=== PATIENT | female | born 1975 | race Two or more races ===

== ENCOUNTER 2024-06-04 09:41 | Day surgery (SDC) | payer OTHER ==
[2024-05-28 12:03] VITALS: BP 106/67
[2024-05-28 13:49] LABS: RH POSITIVE
[~2024-06-04] VITALS: Ht 154.9 cm; Wt 89.8 kg
[~2024-06-04 09:41] MED LIST: GLUMETZA500 MG PO
[2024-06-04] MEDS ORDERED: BUPIVACAINE HCL/Mpf 0.5% 10ML VIAL ONE (13:26)
[2024-06-04] MEDS ORDERED: CEFTRIAXONE SODIUM 2,000 MG VIAL ONE (13:27)
[2024-06-04] MEDS ORDERED: LIDOCAINE HCL 1%/EPINEPHRINE 20ML VIAL IJ ONE (13:27)
[2024-06-04] MEDS ORDERED: METRONIDAZOLE/SODIUM CHLORIDE 500 MG/100 ML PIGGYBACK IV ONE (13:27)
[2024-06-04] MEDS ORDERED: SUGAMMADEX SODIUM 200 MG/2 ML VIAL IV ONE (15:31)
[2024-06-04] MEDS ORDERED: MORPHINE SULFATE 4 MG/ML VIAL IV ONE ×2 (16:55→18:05)
[2024-06-04] MEDS ORDERED: ONDANSETRON HCL 2 MG/ML VIAL ONE (17:04)
== END 2024-06-04 19:05 | disposition home or self-care (01) ==
LOC: O/R 09:41 → SURH 09:41 → CIR.AMB 09:41 → O/R 19:05
PROVIDERS: ATTEND Colon & Rectal Surgery
DX: K57.32 Diverticulitis of large intestine without perforation or abscess without bleeding (principal); N83.202 Unspecified ovarian cyst, left side; R10.32 Left lower quadrant pain; Z91.018 Allergy to other foods; Z91.013 Allergy to seafood; E11.9 Type 2 diabetes mellitus without complications

== ENCOUNTER 2024-10-10 07:29 | Inpatient (IN) | payer OTHER ==
[~2024-10-10] VITALS: Ht 154.9 cm; Wt 90.7 kg
[2024-10-10 08:10] VITALS: BP 133/79
[2024-10-10 08:21] LABS: URINE APPEARANCE Clear; URINE BILIRRUBIN Negative (NEGATIVE); URINE BLOOD Trace; URINE COLOR Dark Yellow; URINE GLUCOSE Negative (NEGATIVE); URINE KETONE Trace (NEGATIVE); URINE LEUKOCYTE Negative; URINE NITRATE Negative; URINE PROTEIN Trace (NEGATIVE); URINE UROBILINOGEN 0.2 E.U./dl
[2024-10-10 08:24] LABS: URINE BACTERIA 1033.1 uL (0.0-1933); URINE EPITHELIAL CELLS 37.8 uL (0.0-38.8); URINE RBC 39.0 uL (0.0-20.8); URINE WBC 20.9 uL (0.0-23.2)
[2024-10-10 08:29] LABS: URINE CAST 0.29 uL (0.0-1.40)
[2024-10-10 08:35] LABS: BASO % 0.6 % (0.1-1.2); EOS # 0.26 (0.04-0.54); EOS % 2.8 % (0.7-7.0); LYMPH # 3.00 (1.18-3.74); LYMPH % 32.3 % (19.3-53.1); MEAN PLATELET VOLUME 9.70 fl (9.4-12.4); MONO # 0.60 (0.24-0.82); MONO % 6.5 % (4.7-12.5); NEUT # 5.34 (1.56-6.13); NEUT % 57.5 % (34.0-71.1); RED CELL DISTRIBUTION WIDTH 13.6 % (11.6-14.4)
[2024-10-10 08:42] LABS: COVID-19 AG NEGATIVE (NEGATIVE)
[2024-10-10 08:44] LABS: INR 1.04
[2024-10-10 08:49] LABS: ALT/SGPT 28.0 U/L (12-78); AST/SGOT 18.0 U/L (15-37); BILIRUBIN TOTAL 0.61 mg/dL (0.3-1.2); BUN CREA RATIO 11.0 (7.0-25.0); CREATININE SERUM 0.71 mg/dL (0.55-1.02); GFR 87.49; GLOBULINA 4.3 G/DL (2.4-3.5); GLUCOSE FASTING 106.0 mg/dL (65-100); OSMOLALITY SERUM 287.0 MOSM/KG (275-295)
[2024-10-10 09:10] LABS: RH POSITIVE
[2024-10-15] MEDS ORDERED: METRONIDAZOLE/SODIUM CHLORIDE 500 MG/100 ML PIGGYBACK IV ONE (08:45)
[2024-10-15] MEDS ORDERED: CEFTRIAXONE SODIUM 2,000 MG VIAL IV ONE (08:45)
[2024-10-15] MEDS ORDERED: LIDOCAINE HCL 1%/EPINEPHRINE 20ML VIAL IJ ONE (08:45)
[2024-10-15] MEDS ORDERED: BUPIVACAINE HCL 30 ML VIAL IJ ONE (08:45)
[2024-10-15] MEDS ORDERED: CHLORHEXIDINE GLUCONATE 120 ML BOTTLE TOP ONE (08:45)
[2024-10-15] MEDS ORDERED: hydrALAZINE HCL 20 MG VIAL IV ONE (10:30)
[2024-10-15] MEDS ORDERED: THROMBIN,HU/FIBRINOGEN/CALCIUM 10 ML SYRINGE TOP ONE (13:15)
[2024-10-15] MEDS ORDERED: ACETAMINOPHEN 500 MG GEL..CAP PO SCH (13:43)
[2024-10-15] MEDS ORDERED: DEXTROSE 50 % IN WATER 0.5 G/ML VIAL IV PRN (13:45)
[2024-10-15] MEDS ORDERED: ONDANSETRON HCL 2 MG/ML VIAL IV PRN (13:45)
[2024-10-15] MEDS ORDERED: MORPHINE SULFATE 4 MG/ML VIAL IV PRN (13:45)
[2024-10-15] MEDS ORDERED: OxyCODONE HCL 5 MG TABLET (ROXICODONE) PO PRN (13:45)
[2024-10-15] MEDS ORDERED: RINGERS SOLUTION,LACTATED 1,000 ML IV SCH (13:45)
[2024-10-15] MEDS ORDERED: MORPHINE SULFATE 4 MG,MORPHINE SULFATE 2 MG IV PRN (14:00)
[2024-10-15] MEDS ORDERED: SUGAMMADEX SODIUM 200 MG/2 ML VIAL IV ONE (14:15)
[2024-10-15 16:08] LABS: BASO % 0.2 % (0.1-1.2); EOS # 0.00 (0.04-0.54); EOS % 0.0 % (0.7-7.0); LYMPH # 0.81 (1.18-3.74); LYMPH % 5.2 % (19.3-53.1); MEAN PLATELET VOLUME 9.60 fl (9.4-12.4); MONO # 0.69 (0.24-0.82); MONO % 4.5 % (4.7-12.5); NEUT # 13.87 (1.56-6.13); NEUT % 89.6 % (34.0-71.1); RED CELL DISTRIBUTION WIDTH 13.5 % (11.6-14.4)
[2024-10-15 16:32] LABS: BUN CREA RATIO 12.0 (7.0-25.0); CREATININE SERUM 0.76 mg/dL (0.55-1.02); GFR 80.88; GLUCOSE FASTING 160.0 mg/dL (65-100); OSMOLALITY SERUM 287.0 MOSM/KG (275-295)
[2024-10-15] MEDS ORDERED: SIMETHICONE 125 MG CAPSULE PO SCH (17:00)
[2024-10-15] MEDS ORDERED: GABAPENTIN 300 MG CAPSULE PO SCH (17:00)
[2024-10-15] MEDS ORDERED: ONDANSETRON HCL 2 MG/ML VIAL IV STA (18:04)
[2024-10-15 18:14] VITALS: BP 113/67; O2SAT 96
[2024-10-15] MEDS ORDERED: POTASSIUM PHOS,M-BASIC-D-BASIC 9 MM in 0.9 % SODIUM CHLORIDE 250 ML IV ONE (18:15)
[2024-10-15] MEDS ORDERED: MAGNESIUM SULFATE 50% 1,000 MG/2 ML VIAL IV ONE (18:15)
[2024-10-15] MEDS ORDERED: FAMOTIDINE/PF 20 MG/2 ML VIAL IV PUSH SCH (21:00)
[2024-10-16 01:46] VITALS: BP 132/76; O2SAT 98
[2024-10-16] MEDS ORDERED: MORPHINE SULFATE 4 MG/ML VIAL IV STA (05:24)
[2024-10-16 06:56] LABS: BASO % 0.1 % (0.1-1.2); EOS # 0.45 (0.04-0.54); EOS % 3.0 % (0.7-7.0); LYMPH # 1.11 (1.18-3.74); LYMPH % 7.4 % (19.3-53.1); MEAN PLATELET VOLUME 10.30 fl (9.4-12.4); MONO # 1.02 (0.24-0.82); MONO % 6.8 % (4.7-12.5); NEUT # 12.41 (1.56-6.13); NEUT % 82.4 % (34.0-71.1); RED CELL DISTRIBUTION WIDTH 13.7 % (11.6-14.4)
[2024-10-16 08:00] VITALS: BP 118/77; O2SAT 96
[2024-10-16 08:05] LABS: BUN CREA RATIO 9.0 (7.0-25.0); CREATININE SERUM 0.68 mg/dL (0.55-1.02); GFR 91.96; GLUCOSE FASTING 119.0 mg/dL (65-100); OSMOLALITY SERUM 286.0 MOSM/KG (275-295)
[2024-10-16] MEDS ORDERED: MAGNESIUM CHLORIDE 70 MG TABLET.DR PO SCH (09:00)
[2024-10-16] MEDS ORDERED: LACTOBACILLUS ACIDOPHILUS 1 CAP CAP PO SCH (09:00)
[2024-10-16 16:00] VITALS: BP 123/82; O2SAT 96
[2024-10-16] MEDS ORDERED: ENOXAPARIN SODIUM 40 MG/0.4 ML SYRINGE SUBCUTANEO SCH (17:00)
[2024-10-17 00:47] VITALS: BP 105/60; O2SAT 96
[2024-10-17 07:20] LABS: BASO % 0.2 % (0.1-1.2); EOS # 0.79 (0.04-0.54); EOS % 5.4 % (0.7-7.0); LYMPH # 1.49 (1.18-3.74); LYMPH % 10.1 % (19.3-53.1); MEAN PLATELET VOLUME 10.50 fl (9.4-12.4); MONO # 0.91 (0.24-0.82); MONO % 6.2 % (4.7-12.5); NEUT # 11.46 (1.56-6.13); NEUT % 77.6 % (34.0-71.1); RED CELL DISTRIBUTION WIDTH 14.0 % (11.6-14.4)
[2024-10-17 07:31] LABS: BUN CREA RATIO 8.0 (7.0-25.0); CREATININE SERUM 0.53 mg/dL (0.55-1.02); GFR 122.61; GLUCOSE FASTING 108.0 mg/dL (65-100); OSMOLALITY SERUM 286.0 MOSM/KG (275-295)
[2024-10-17] MEDS ORDERED: NAPH,MB-DB/K PH,MBDB 1 PKT PACKET PO SCH (09:00)
[2024-10-17] MEDS ORDERED: POTASSIUM PHOS,M-BASIC-D-BASIC 3 MM/ML VIAL IV ONE (10:00)
[2024-10-17 10:06] VITALS: BP 109/71; O2SAT 98
[2024-10-17 16:00] VITALS: BP 109/74; O2SAT 96
[2024-10-18 01:55] VITALS: BP 126/83; O2SAT 96
[2024-10-18] MEDS ORDERED: MORPHINE SULFATE 4 MG/ML CARTRIDGE IV PRN (05:31)
[2024-10-18 06:12] LABS: BASO % 0.2 % (0.1-1.2); EOS # 0.71 (0.04-0.54); EOS % 5.6 % (0.7-7.0); LYMPH # 2.99 (1.18-3.74); LYMPH % 23.7 % (19.3-53.1); MEAN PLATELET VOLUME 10.50 fl (9.4-12.4); MONO # 0.84 (0.24-0.82); MONO % 6.6 % (4.7-12.5); NEUT # 8.05 (1.56-6.13); NEUT % 63.7 % (34.0-71.1); RED CELL DISTRIBUTION WIDTH 13.6 % (11.6-14.4)
[2024-10-18 06:55] LABS: BUN CREA RATIO 15.0 (7.0-25.0); CREATININE SERUM 0.47 mg/dL (0.55-1.02); GFR 140.84; GLUCOSE FASTING 91.0 mg/dL (65-100); OSMOLALITY SERUM 284.0 MOSM/KG (275-295)
[2024-10-18 08:00] VITALS: BP 113/72; O2SAT 95
[2024-10-18 16:00] VITALS: BP 102/67; O2SAT 96
[2024-10-19 00:46] VITALS: BP 93/59; O2SAT 96
[2024-10-19 08:00] VITALS: BP 112/77; O2SAT 97
== END 2024-10-19 11:11 | disposition home or self-care (01) | DRG 329 ==
LOC: O/R 10-15 05:12 → OB/GYN 10-15 08:00 → SURH 10-15 08:00
PROVIDERS: Obstetrics & Gynecology Gynecologic Oncology; ADMIT Colon & Rectal Surgery; ATTEND Colon & Rectal Surgery
PROC: 0UBC4ZZ Excision of Cervix, Percutaneous Endoscopic Approach (ICD-10-PCS; 2024-10-15)
PROC: 0TN74ZZ Release Left Ureter, Percutaneous Endoscopic Approach (ICD-10-PCS; 2024-10-15)
PROC: 0TN64ZZ Release Right Ureter, Percutaneous Endoscopic Approach (ICD-10-PCS; 2024-10-15)
PROC: 0DNW4ZZ Release Peritoneum, Percutaneous Endoscopic Approach (ICD-10-PCS; 2024-10-15)
PROC: 0DBU4ZZ Excision of Omentum, Percutaneous Endoscopic Approach (ICD-10-PCS; 2024-10-15)
PROC: 0UT24ZZ Resection of Bilateral Ovaries, Percutaneous Endoscopic Approach (ICD-10-PCS; 2024-10-15)
PROC: 0UT74ZZ Resection of Bilateral Fallopian Tubes, Percutaneous Endoscopic Approach (ICD-10-PCS; 2024-10-15)
PROC: 0DJD8ZZ Inspection of Lower Intestinal Tract, Via Natural or Artificial Opening Endoscopic (ICD-10-PCS; 2024-10-15)
PROC: 0WJG4ZZ Inspection of Peritoneal Cavity, Percutaneous Endoscopic Approach (ICD-10-PCS; 2024-10-15)
PROC: 0DTN4ZZ Resection of Sigmoid Colon, Percutaneous Endoscopic Approach (ICD-10-PCS; principal; 2024-10-15 12:15)
PROC: 0DBP4ZZ Excision of Rectum, Percutaneous Endoscopic Approach (ICD-10-PCS; 2024-10-15 12:15)
PROC: 0D9670Z Drainage of Stomach with Drainage Device, Via Natural or Artificial Opening (ICD-10-PCS; 2024-10-17)
DX: K57.32 Diverticulitis of large intestine without perforation or abscess without bleeding (principal); K68.2 Retroperitoneal fibrosis; N83.292 Other ovarian cyst, left side; R10.32 Left lower quadrant pain; N73.6 Female pelvic peritoneal adhesions (postinfective); N88.8 Other specified noninflammatory disorders of cervix uteri; N80.102 Endometriosis of left ovary, unspecified depth; D72.829 Elevated white blood cell count, unspecified; R14.0 Abdominal distension (gaseous)